=== PATIENT | female | born 1985 | race African-American/Black ===

== ENCOUNTER 2017-03-06 21:32 | Emergency (ER) | payer OTHER ==
[~2017-03-06] VITALS: Ht 162.6 cm; Wt 106.6 kg
[~2017-03-06 21:32] MED LIST: MACROBID100 MG PO; PHENERGAN50 MG/SUPP RC
== END 2017-03-06 23:35 | disposition home or self-care (01) ==
LOC: CFTX 21:32 → CED 21:32 → CFTX 23:32
DX: F41.9 Anxiety disorder, unspecified (principal); F32.9 Major depressive disorder, single episode, unspecified; Z79.899 Other long term (current) drug therapy
CPT/HCPCS: 99283

== ENCOUNTER 2017-03-12 16:37 | Emergency (ER) | payer OTHER ==
--- NOTE | ~2017-03-12 | CR63 ---
[facility] A Service of [facility] & [facility] RADIOLOGY TEXT RESULTS PATIENT: HEMANT GONZALEZ LOCATION: [facility] : 89 UNIT #: [id number] AGE: [address]: Deysi Alcantar MD SEX: F ORDER DR: [id number] [facility] [address] [place] [place], [place] [address] [id number] MR#: [id number] Acc #: [id number] NAME: HEMANT GONZALEZ : 1985 SEX: F STUDY DATE/TIME: 03/12/2017 18:00 UNIT: [facility] ROOM: STUDY DESCRIPTION: CR Chest 2 View Attending Physician: Deysi Alcantar M.D. Ordering Physician: Deysi Alcantar M.D. Primary Care Physician: Primary Care Physician No MEDICAL IMAGING REPORT This report is preliminary unless electronic signature is present EXAM Two-view chest HISTORY Chest pain for 2 weeks. COMPARISON 09/24/2008 FINDINGS PA and lateral examination of the chest upright shows a good expansion of the parenchyma with a normal distribution of the pulmonary vascularity. There is no indication of congestion, effusion, infiltrate, tumor, or nodular density. The pleural reflections and diaphragmatic contours are normal. The cardiac silhouette and mediastinal anatomy is within normal limits. IMPRESSION Normal chest. Dictated by... Michele Vazquez M.D. THIS IS AN ELECTRONICALLY VERIFIED REPORT Michele Vazquez M.D. at 03/12/2017 10:04 PM ABRAN/chase TD: 03/12/2017 19:55 JOB #: [id number] MEDICAL IMAGING REPORT Page 1 of 1 COPY
--- NOTE | ~2017-03-12 | EKG ---
PATIENT: HEMANT GONZALEZ UNIT #: [id number] Ventricular Rate: 89 BPM Atrial Rate: 89 BPM P-R Interval: 126 ms QRS Duration: 100 ms Q-T Interval: 342 ms QTC Calculation(Bezet): 416 ms P [place]: 73 degrees Calculated R [place]: 59 degrees Calculated T [place]: 20 degrees Diagnosis Line: Normal sinus rhythm with sinus arrhythmia Diagnosis Line: Possible Left atrial enlargement Diagnosis Line: Nonspecific ST and T wave abnormality Diagnosis Line: Abnormal ECG Diagnosis Line: Diagnosis Line: Confirmed by KENNEDY HILL MD ([id number]) on 03/14/2017 Diagnosis Line: 10:55:19 PM INTERPRETING MD: LIZ BATISTA
[2017-03-12 17:38] LABS: URINE SOURCE CLEAN CATCH
[2017-03-12 17:52] LABS: URINE APPEARANCE CLEAR; URINE BILIRUBIN NEG (NEG); URINE BLOOD NEG (NEG); URINE COLOR YELLOW; URINE GLUCOSE NEG (NEG); URINE KETONE NEG (NEG); URINE LEUKOCYTE ESTERASE NEG (NEG); URINE NITRATE NEG (NEG); URINE PH 6.5 (5-8); URINE PROTEIN NEG (NEG); URINE SPECIFIC GRAVITY 1.016 (1.003-1.035); URINE UROBILINOGEN 0.2 MG/DL (NEG)
[2017-03-12 17:57] LABS: CULTURE INDICATED? NO
[2017-03-12 18:27] LABS: AMPHETAMINE NEG (NEG); BARBITURATES NEG (NEG); BENZODIAZEPINES NEG (NEG); COCAINE NEG (NEG); MARIJUANA POS (NEG); OPIATES NEG (NEG); TRICYCLIC ANTIDEPRESSANTS NEG (NEG); U METHADONE NEG (NEG)
[2017-03-12 19:00] LABS: POC - CKMB 1.2 ng/mL (0.0-7.9); POC - TROPONIN <0.05 ng/mL (<=0.05)
[2017-03-12 19:19] LABS: BASOPHIL% 0.8 % (0-2.5); EOSINOPHIL# 0.1 X10e3 (0-0.7); EOSINOPHIL% 1.5 % (0.0-7.0); HEMATOCRIT 37.9 % (35.0-45.0); HEMOGLOBIN 12.3 gm/dL (12.0-16.0); LYMPHOCYTE# 2.3 X10e3 (1.0-3.5); LYMPHOCYTE% 36.7 % (17.0-45.0); MEAN CELL VOLUME 80.6 FL (83-96); MEAN CORPUSCULAR HEMOGLOBIN 26.2 PG (28-34); MEAN CORPUSCULAR HGB CONC 32.5 g/dL (30-36); MEAN PLATELET VOLUME 7.4 FL (6.5-11.5); MONOCYTE# 0.4 X10e3 (0-1.0); MONOCYTE% 6.1 % (3.0-12.0); NEUTROPHIL# 3.4 X10e3 (1.5-7.1); NEUTROPHIL% 54.9 % (40-75); PLATELET COUNT 369 X10e3 (140-420); RED CELL DISTRIBUTION WIDTH 17.3 % (11.0-15.5); WHITE BLOOD COUNT 6.2 X10e3 (4.0-10.5)
[2017-03-12 19:20] LABS: DIFF IND NO
[2017-03-12 19:31] LABS: ALBUMIN SERUM 3.9 g/dL (3.5-5.0); BILIRUBIN, DIRECT 0.1 mg/dL (0.0-0.2); BILIRUBIN,INDIRECT 0.5 mg/dL (0.0-0.9); BILIRUBIN,TOTAL 0.6 mg/dL (0.2-2.0); BUN/CREATININE RATIO 7.5; CALCIUM SERUM 9.3 mg/dL (8.4-10.2); CREATININE SERUM 0.8 mg/dL (0.6-1.4); GLOM FILT RATE Estimated 115.6 mL/min (>60); POTASSIUM 3.1 mmol/L (3.5-5.1); PROTEIN TOTAL SERUM 7.8 g/dL (6.0-8.3)
== END 2017-03-12 20:15 | disposition home or self-care (01) ==
LOC: CED 16:37
PROVIDERS: Student in an Organized Health Care Education/Training Program
DX: R53.83 Other fatigue (principal); B37.3 Candidiasis of vulva and vagina; E87.6 Hypokalemia
CPT/HCPCS: 36415; 71020; 80048; 80076; 80307; 81003; 82553; 84484; 84703; 85025; 85379; 93005; 96361; 96374; 96375; 99284; J1885; J2405

== ENCOUNTER 2017-03-20 18:05 | Emergency (ER) | payer OTHER ==
[~2017-03-20] VITALS: Ht 163.8 cm; Wt 104.3 kg
== END 2017-03-20 19:10 | disposition home or self-care (01) ==
LOC: CED 18:05 → CFTX 18:05
DX: R21 Rash and other nonspecific skin eruption (principal); F17.200 Nicotine dependence, unspecified, uncomplicated; Z98.890 Other specified postprocedural states
CPT/HCPCS: 99283

== ENCOUNTER 2017-03-30 15:44 | Emergency (ER) | payer OTHER ==
[~2017-03-30] VITALS: Ht 162.6 cm; Wt 104.3 kg
[2017-03-30 19:54] LABS: URINE SOURCE CLEAN CATCH
[2017-03-30 19:59] LABS: URINE APPEARANCE CLEAR; URINE BILIRUBIN NEG (NEG); URINE BLOOD NEG (NEG); URINE COLOR YELLOW; URINE GLUCOSE NEG (NEG); URINE KETONE NEG (NEG); URINE LEUKOCYTE ESTERASE NEG (NEG); URINE NITRATE NEG (NEG); URINE PH 6.5 (5-8); URINE PROTEIN NEG (NEG); URINE UROBILINOGEN 0.2 MG/DL (NEG)
[2017-03-30 20:06] LABS: CULTURE INDICATED? NO
[2017-04-02 12:02] LABS: CHLAMYDIA TRACH Not Detected (Not Detected); N GONOR Not Detected (Not Detected)
== END 2017-03-30 19:40 | disposition home or self-care (01) ==
LOC: CFTX 15:44 → CED 15:44 → CFTX 19:36
PROVIDERS: Nurse Practitioner
DX: N89.8 Other specified noninflammatory disorders of vagina (principal); Z98.890 Other specified postprocedural states
CPT/HCPCS: 81003; 84703; 87491; 87591; 87808; 87905; 99283

== ENCOUNTER 2017-04-07 21:47 | Emergency (ER) | payer OTHER ==
[~2017-04-07] VITALS: Ht 162.6 cm; Wt 104.3 kg
[2017-04-07 23:53] LABS: URINE SOURCE CLEAN CATCH
[2017-04-07 23:56] LABS: URINE APPEARANCE CLEAR; URINE BILIRUBIN NEG (NEG); URINE BLOOD NEG (NEG); URINE COLOR YELLOW; URINE GLUCOSE NEG (NEG); URINE KETONE NEG (NEG); URINE LEUKOCYTE ESTERASE TRACE (NEG); URINE NITRATE NEG (NEG); URINE PH 7.5 (5-8); URINE PROTEIN NEG (NEG); URINE SPECIFIC GRAVITY 1.016 (1.003-1.035); URINE UROBILINOGEN 0.2 MG/DL (NEG)
[2017-04-07 23:59] LABS: CULTURE INDICATED? YES; URBCS1 AUWI 0-2 /[HPF] (0-2); URINE BACTERIA AUWI 1+ (NEGATIVE); URINE SQUAMOUS EPITHELIAL CELL OCC /[HPF]
== END 2017-04-08 00:13 | disposition home or self-care (01) ==
LOC: CED 21:47
PROVIDERS: Emergency Medicine
DX: N89.8 Other specified noninflammatory disorders of vagina (principal); Z91.19 Patient's noncompliance with other medical treatment and regimen; F17.200 Nicotine dependence, unspecified, uncomplicated; R10.9 Unspecified abdominal pain
CPT/HCPCS: 81003; 84703; 87086; 99283